=== PATIENT | female | born 1965 | race Caucasian/White ===

== ENCOUNTER 2020-05-03 06:30 | Day surgery (SDC) | payer OTHER ==
[2020-04-25 16:31] VITALS: BMI 25.2
[2020-05-03] MEDS ORDERED: ceFAZolin SODIUM 1 GM VIAL ONE ×2 (07:24→08:13)
[2020-05-03] MEDS ORDERED: BUPIVACAINE HCL/PF 0.25% (2.5MG/ML) 10 ML VIAL ONE (07:24)
[2020-05-03] MEDS ORDERED: EPINEPHrine/PF 1 MG/1 ML (1:1,000) AMPULE ONE (07:24)
[2020-05-03] MEDS ORDERED: GENTAMICIN SO4 80 MG/2 ML VIAL ONE (07:24)
[2020-05-03] MEDS ORDERED: LIDOCAINE HCL 1%, 10 MG/ML (20ML VIAL) ONE ×2 (07:25→08:17)
[2020-05-03] MEDS ORDERED: LIDOCAINE 1%/EPI 1:100000 (20 ML MULTI DOSE VIAL) ONE (07:25)
[2020-05-03] MEDS ORDERED: SODIUM CHLORIDE 0.9% P/F 10 ML VIAL IJ ONE (07:25)
[2020-05-03] MEDS ORDERED: PROPOFOL 20 ML ONE ×8 (07:50→08:31)
[2020-05-03] MEDS ORDERED: SUCCINYLCHOLINE CHLORIDE 200 MG/10 ML SYRINGE ONE (07:50)
[2020-05-03] MEDS ORDERED: MIDAZOLAM HCL 2 MG/2 ML SINGLE DOSE VIAL ONE (07:50)
[2020-05-03] MEDS ORDERED: LIDOCAINE HCL/PF 2% SDV 5ML VIAL ONE (07:51)
[2020-05-03] MEDS ORDERED: DEXAMETHASONE SOD PHOSPHATE 4 MG/1 ML VIAL ONE ×2 (07:52→08:13)
[2020-05-03] MEDS ORDERED: KETOROLAC TROMETHAMINE 30 MG/1 ML VIAL ONE ×2 (07:52→08:13)
[2020-05-03] MEDS ORDERED: LIDOCAINE HCL 2% JELLY (5 ML/TUBE) ONE (07:52)
[2020-05-03] MEDS ORDERED: BUPIVACAINE HCL/EPINEPHRINE/PF 30 ML VIAL IJ ONE (08:16)
[2020-05-03] MEDS ORDERED: oxyCODONE HCL 5 MG TABLET PO PRN ×2 (10:16)
[2020-05-03] MEDS ORDERED: PROMETHAZINE HCL 25 MG/1 ML VIAL IVPUSH PRN (10:16)
[2020-05-03] MEDS ORDERED: SUMAtriptan SUCCINATE 50 MG TABLET PO SCH (11:00)
[2020-05-03] MEDS ORDERED: SUMAtriptan SUCCINATE 50 MG TABLET PO ONE (12:00)
[2020-05-03 12:09] VITALS: TEMP 98.6
[2020-05-03 13:55] VITALS: BP 130/74; PULSE 78
== END 2020-05-03 14:20 | disposition home or self-care (01) ==
LOC: FASU 06:30
PROVIDERS: ATTEND Plastic Surgery
PROC: 0HWU0JZ Revision of Synthetic Substitute in Left Breast, Open Approach (ICD-10-PCS; 2020-05-03)
PROC: 0JX80ZZ Transfer Abdomen Subcutaneous Tissue and Fascia, Open Approach (ICD-10-PCS; 2020-05-03)
PROC: 07B60ZX Excision of Left Axillary Lymphatic, Open Approach, Diagnostic (ICD-10-PCS; 2020-05-03)
PROC: 0HUV37Z Supplement Bilateral Breast with Autologous Tissue Substitute, Percutaneous Approach (ICD-10-PCS; 2020-05-03)
PROC: 0HNT0ZZ Release Right Breast, Open Approach (ICD-10-PCS; principal; 2020-05-03 08:20)
PROC: 0HRU0JZ Replacement of Left Breast with Synthetic Substitute, Open Approach (ICD-10-PCS; 2020-05-03 08:20)
PROC: 0HPU0JZ Removal of Synthetic Substitute from Left Breast, Open Approach (ICD-10-PCS; 2020-05-03 08:20)
DX: M95.4 Acquired deformity of chest and rib (principal); T85.44XA Capsular contracture of breast implant, initial encounter; T85.898A Other specified complication of other internal prosthetic devices, implants and grafts, initial encounter; Z85.3 Personal history of malignant neoplasm of breast; Z92.3 Personal history of irradiation; Z90.13 Acquired absence of bilateral breasts and nipples
CPT/HCPCS: 88300-TC; 88304-TC; 88307-TC; 88312-TC; 88342-TC; 94760